=== PATIENT | female | born 1960 ===

== ENCOUNTER 2017-12-21 18:46 | Emergency (ER) | payer OTHER, MEDICARE ==
[2017-12-21 19:02] VITALS: BMI 28.1
[2017-12-21 19:04] VITALS: BP 97/58; PULSE 86; RESP 16; TEMP 99; O2SAT 97
--- NOTE | 2017-12-21 20:03 | ED PDOC ---
HPI: Trauma/Fall - HPI Time Seen by Provider: 12/21/17 19:47 Chief Complaint (Nursing): Trauma History Per: Patient History/Exam Limitations: no limitations Onset/Duration Of Symptoms: Mins Additional Complaint(s): Hx of ESRD, HTN, DM presenting with fall, states she missed a crack and fell with outstretched arms, states impact was mostly on her L wrist, also bruised R knee, ambulatory at scene, was able to walk without issue. No head injury, no LOC. Past Medical History Reviewed: Historical Data, Nursing Documentation, Vital Signs Vital Signs: Last Vital Signs Temp 99 F 12/21/17 19:02 Pulse 86 12/21/17 19:02 Resp 16 12/21/17 19:02 BP 97/58 L 12/21/17 19:02 Pulse Ox 97 12/21/17 19:02 - Medical History PMH: Anemia, Asthma, Diabetes, HTN, Hypercholesterolemia, Hypothyroidism, Chronic Kidney Disease, Rheumatoid Arthritis Denies: Bronchitis, Cardia Arrhythmia, CHF, COPD, Emphysema, Fractures, HIV, Hyperthyroidism, Kidney Stones, Mitral Valve Prolapse, Osteoporosis, Peripheral Edema, Pneumonia, Pulmonary Embolism - Surgical History Surgical History: Endoscopy - Family History Family History: States: Unknown Family Hx - Home Medications Home Medications: Ambulatory Orders Medication Instructions Recorded Amlodipine/Valsartan [Exforge 5 5 - 160 mg PO DAILY 05/04/14 mg-160 mg] Clopidogrel [Plavix] 75 mg PO DAILY 05/04/14 Fluticasone/Salmeterol 100/50 1 puff IH Q12 05/04/14 [Advair Diskus 100/50] Insulin Lispro Mix 75/25 [humalog 20 units SC AC 05/04/14 Mix 75/25 75 U/Ml-25 U/Ml 10 Ml] Rosuvastatin Calcium [Crestor] 10 mg PO HS 05/04/14 Calcium Acetate [Phoslo] 3 cap PO TID 05/08/16 Carvedilol [Coreg Cr] 1 cer PO DAILY 05/08/16 Cinacalcet [Sensipar] 1 tab PO DAILY 05/08/16 Dexlansoprazole [Dexilant] 1 cap PO DAILY 05/08/16 Gabapentin [Neurontin] 1 tab PO TID 05/08/16 Hydroxyzine HCl 1 tab PO DAILY 05/08/16 Insulin Lispro Mix 75/25 [HumaLog 24 units SC AC 05/08/16 MIX 75/25] Levocetirizine Dihydrochloride 1 tab PO PRN PRN 05/08/16 Levothyroxine [Synthroid] 1 tab PO DAILY 05/08/16 Acetaminophen [Pain Reliever] 500 mg PO Q4 #30 tablet 12/21/17 - Allergies Allergies/Adverse Reactions: Allergies Allergy/AdvReac Type Severity Reaction Status Date / Time No Known Allergies Allergy Verified 05/08/16 10:33 Review of Systems ROS Statement: Except As Marked, All Systems Reviewed And Found Negative Musculoskeletal: Positive for: Arm Pain Physical Exam - Reviewed Nursing Documentation Reviewed: Yes Vital Signs Reviewed: Yes - Physical Exam Appears: Positive for: Well, Non-toxic, No Acute Distress Head Exam: Positive for: ATRAUMATIC, NORMAL INSPECTION, NORMOCEPHALIC Skin: Positive for: Normal Color, Warm, DRY Eye Exam: Positive for: EOMI, Normal appearance, PERRL Neck: Positive for: Normal, Painless ROM Extremity: Positive for: Tenderness, Swelling (swelling to distal forearm, warm , well perfused, pulses intact, some limitation in extension/flexion, scaphoid tenderness; upper arm fistula with palpable thrill, audible bruit; R knee with abrasion, FROM, no deformity/swelling) Neurologic/Psych: Positive for: Alert, dietary supervisor II-XII, Oriented. Negative for: Motor/Sensory Deficits - ECG O2 Sat by Pulse Oximetry: 97 Pulse Ox Interpretation: Normal Medical Decision Making Medical Decision Making: A/P: Patient with fall, fracture v. sprain -will get xrays -splint -ortho referral -APAP for pain 920 xray shows no fracture, will place in thumb spica for possible scaphoid fracture advised to followup with ortho for repeat films/exam as warranted instructions given. Disposition - Clinical Impression Clinical Impression: Wrist contusion - Disposition Referrals: Ruchi Cook MD [Staff Provider] - Disposition: Routine/Home Disposition Time: 21:21 Condition: IMPROVED Prescriptions: Acetaminophen [Pain Reliever] 500 mg PO Q4 #30 tablet Instructions: Wrist Sprain (DC) Forms: [employer])
--- NOTE | 2017-12-21 21:49 | RAD ---
EXAM: XR Left Wrist Complete, 3 or More Views EXAM DATE/TIME: 12/21/2017 7:54 PM CLINICAL HISTORY: 57 years old, female; Injury or trauma; Fall; Initial encounter; Blunt trauma (contusions or hematomas; Wrist; Left; Additional info: S/P fall, wrist pain, dialysis arm TECHNIQUE: Frontal, lateral and oblique views of the left wrist. COMPARISON: No relevant prior studies available. FINDINGS: BONES/JOINTS: No acute fractures visualized. No evidence of acute dislocation. SOFT TISSUES: No radiographic evidence of significant soft tissue abnormality. VASCULATURE: Vascular calcifications noted. IMPRESSION: - No acute fracture or dislocation seen. - See above for remaining findings.
== END 2017-12-21 22:10 | disposition home or self-care (01) ==
LOC: H.ER 18:46
DX: I10 Essential (primary) hypertension (principal); E11.9 Type 2 diabetes mellitus without complications; N18.9 Chronic kidney disease, unspecified; J45.909 Unspecified asthma, uncomplicated; S60.212A Contusion of left wrist, initial encounter; W19.XXXA Unspecified fall, initial encounter